=== PATIENT | female | born 2000 | race Caucasian/White ===

== ENCOUNTER 2022-01-13 00:35 | Emergency (ER) | payer OTHER ==
[~2022-01-13] VITALS: Ht 152.4 cm; Wt 63.5 kg
--- NOTE | 2022-01-13 01:26 | NUR ---
PT BIBS FROM [facility] C/O CAT BITE/SCRATCH ON RIGHT HAND TDAP UTD. PT A/OX4. TOLERATING R/A WELL WITH NO SOB.
[2022-01-13 01:29] VITALS: BP 142/80
[2022-01-13] MEDS ORDERED: AMOX-430 PO (01:35)
[2022-01-13] MEDS ORDERED: AMOX/CLAVULANATE 875 MG TABLET ONE (01:39)
--- NOTE | 2022-01-13 01:41 | NUR ---
Patient discharged to home in stable condition. Written and verbal after care instructions given. Patient verbalizes understanding of instruction.
[2022-01-13] MEDS ORDERED: AMOX/CLAVULANATE 875 MG TABLET PO ONE (02:00)
== END 2022-01-13 01:42 | disposition home or self-care (01) ==
LOC: ER 00:38
DX: S61.431A Puncture wound without foreign body of right hand, initial encounter (principal); W55.01XA Bitten by cat, initial encounter; Y93.89 Activity, other specified; Y92.89 Other specified places as the place of occurrence of the external cause; Y99.8 Other external cause status